=== PATIENT | female | born 1965 | race Caucasian/White ===

== ENCOUNTER 2017-01-29 17:05 | Emergency (ER) | payer MEDICAID, OTHER ==
[2017-01-29] MEDS ORDERED: IBUPROFEN 600 MG TABLET ONE (18:56)
--- NOTE | 2017-01-30 07:57 | RAD ---
SHOULDER-RIGHT 2 OR MORE VIEWS COMPARISON: None. HISTORY: Pain down right arm for 6 months. FINDINGS: Views: Right shoulder AP, Grashey, and scapular Y Bones: 7 x 4 mm calcification projects at the greater tuberosity humerus. Joints: Normal. Soft tissues: Normal. IMPRESSION: 1. 7 x 4 mm calcification projects at the greater tuberosity of the right humerus. This could be a bone island or superimposed calcification in the bursa or rotator cuff tendon. Recommendation: Ultrasound of the right shoulder.
== END 2017-01-29 20:01 | disposition home or self-care (01) ==
LOC: ED 17:05
DX: M25.511 Pain in right shoulder (principal); G89.29 Other chronic pain; E11.9 Type 2 diabetes mellitus without complications; W01.10XA Fall on same level from slipping, tripping and stumbling with subsequent striking against unspecified object, initial encounter; Y93.01 Activity, walking, marching and hiking; Y92.9 Unspecified place or not applicable
CPT/HCPCS: 73030; 99283 ×2; A9270